=== PATIENT | male | born 1945 | race Caucasian/White ===

== ENCOUNTER → 2018-07-09 | Day surgery (SDC) | payer MEDICARE, OTHER ==
[~2018-07-09] MED LIST: Dextrose 5%-0.45% NaCl 1,000 ML IV SCH; Midazolam 1 MG/ML 2 ML SDV IV ONE; Midazolam 1 MG/ML 2 ML SDV ONE; Sodium Chloride 0.9% 10 ML Syringe FLUSH PRN; fentaNYL 100 MCG/2 ML SDV IV ONE; fentaNYL 100 MCG/2 ML SDV ONE
--- NOTE | 2018-07-09 13:43 | OR ---
DATE: 07/09/2018 PROCEDURE: Esophagogastroduodenoscopy, NBI, and multiple pinch biopsies. INSTRUMENT USED: [id number] Olympus video panendoscope. PREMEDICATIONS: No oral topical anesthesia used. Fentanyl 100 mcg intravenous, Versed 2 mg intravenous. The procedure was done under pulse oximetry, BP recording, and clinical research monitor. 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 The esophagogastroduodenoscopy is performed for surveillance, dysplasia, malignancy with reference to Jansen esophagus, erosive disease also under consideration. H. pylori status to be determined, biopsies to be obtained for Jansen dysplasia, endoscopic hemostasis therapy if needed. DESCRIPTION OF PROCEDURE: The scope was passed with ease. Adequate visualization of the esophagus was made from proximal to distal areas. No upper esophageal lesions identified. No distal esophageal stricture. No uphill or downhill esophageal varices. No Janice-Banks tear. No evidence of erosive esophagitis by [place] criteria. Proximally encroaching pink columnar epithelium was noted at around 37 cm distal to the oral verge. Sliding hiatal hernia was noted. No esophageal polyp or tumor mass identified. Four-quadrant biopsies were taken at 2 cm distance apart from the proximally encroaching pink columnar epithelium and sent for any evidence of dysplasia. No proximal gastric varices noted. Gastric fundus examination showed benign polyps. No gastric ulcer, malignant mass, or vascular ectasia identified. Duodenal bulb showed no ulcer. Visualized second part of the duodenum was unremarkable. Multiple pinch biopsies were taken from the gastric antrum and proximal body and sent for PyloriTek test for H. pylori and histopathology. No bleeding was noted from any of the visualized areas at the completion of the examination. Photographs were taken of the duodenal bulb, gastric antrum, fundus, and distal esophagus. IMPRESSION: 1. Jansen esophagus. 2. Sliding hiatal hernia. 3. Gastric fundus diminutive polyps. The patient tolerated the procedure well. [facility] /[id number]
== END | disposition home or self-care (01) ==
LOC: DL.ENDO 06:47
PROVIDERS: ATTEND Internal Medicine Gastroenterology
DX: K22.70 Barrett's esophagus without dysplasia (principal); K21.9 Gastro-esophageal reflux disease without esophagitis; K44.9 Diaphragmatic hernia without obstruction or gangrene; K31.7 Polyp of stomach and duodenum; I10 Essential (primary) hypertension; E78.5 Hyperlipidemia, unspecified; R73.9 Hyperglycemia, unspecified; Z88.0 Allergy status to penicillin; Z88.1 Allergy status to other antibiotic agents; Z88.8 Allergy status to other drugs, medicaments and biological substances
CPT/HCPCS: 87077; J2250; J3010; J7042

== ENCOUNTER 2020-05-25 23:25 | Emergency (ER) | payer MEDICARE, OTHER ==
--- NOTE | 2020-05-25 23:40 | EDM.PDOC ---
ED HPI GENERAL MEDICAL PROBLEM - General Stated Complaint: [facility] Time Seen by Provider: 05/25/20 23:28 Source of Information: Reports: Patient, EMS History Limitations: Reports: No Limitations - History of Present Illness INITIAL COMMENTS - FREE TEXT/NARRATIVE: HPI: This 74 yo male patient was brought to the ED by [facility] due to a fall down stairs. This patient reportedly fell down approximately 10 stairs hitting the back of his head. The patient reports he has had several drinks today and also admits to being intoxicated. The patient denies any loss of consciousness before, during or after the fall. Primary Survey Airway: open and patient Breathing: regular without additional effort Circulation: no major bleeding noted Deformity: no deformity noted Expose: as appropriate GCS: 15 Secondary Survey HEENT Head: laceration to the posterior scalp (bleeding controlled) Eyes: PERRLA Ears: no obvious trauma, canals open Nose: no deformity, no bleeding, mucosa moist Mouth: no noted trauma Throat: no abnormalities noted Neck: Subtle, normal range of motion no cervical tenderness Chest: lung sounds were clear and equal bilaterally, Heart was RRR, no murmurs, rubs or gallop Abdomen: normoactive bowel sounds, no organomegally, no tenderness on palpation Pelvis: stable Extremities: CMS intact Provider Trauma Notes Arrival Time: 2327 GCS on Arrival: 15 C-collar present on arrival: yes GCS at 1 hour: 15 Off spine board: 2330 Time primary survey: 2328 Time secondary survey:233 Time C-collar cleared: 0023 By: DS Time removed: 0024 GCS on discharge: 15 Onset: Today Duration: Minutes: Location: Reports: Head, Back Quality: Reports: Ache, Dull Severity: Moderate Improves with: Reports: None Worsens with: Reports: None Context: Reports: Trauma (fall down stairs) Associated Symptoms: Reports: No Other Symptoms - Related Data Allergies Allergy/AdvReac Type Severity Reaction Status Date / Time Aminoglycosides Allergy Cannot Verified 04/20/20 10:21 Remember clindamycin Allergy Hives Verified 04/20/20 10:21 Penicillins Allergy Hives Verified 04/20/20 10:21 vancomycin Allergy Hives Verified 04/20/20 10:21 Home Meds: Home Meds Amitriptyline [Elavil] 100 mg PO BEDTIME PRN 06/11/13 [History] Aspirin [Adult Low Dose Aspirin EC] 81 mg PO DAILY 06/11/13 [History] Multivitamin [Multi Vitamin Daily] 1 each PO DAILY 06/11/13 [History] Omeprazole 20 mg PO BID 06/11/13 [History] amLODIPine Besylate/Benazepril [Amlodipine-Benazepril 10-20 MG] 5 mg PO DAILY 06/11/13 [History] Finasteride 5 mg PO DAILY 04/05/15 [History] Acetaminophen [Tylenol Extra Strength] 500 mg PO Q6HR PRN 04/06/15 [History] Simvastatin [Zocor] 40 mg PO BEDTIME 04/06/15 [History] Acetaminophen/HYDROcodone [Ducor 325-5 MG] 1 tab PO BEDTIME PRN 07/08/18 [History] Benazepril [Lotensin] 20 mg PO DAILY 07/08/18 [History] Doxazosin [Cardura] 1 mg PO DAILY 07/08/18 [History] Fenofibrate Nanocrystallized [Tricor] 145 mg PO DAILY 07/08/18 [History] Metoprolol Succinate [Toprol Xl] 50 mg PO BID 07/08/18 [History] Nitroglycerin 0.4 mg PO ASDIRECTED PRN 07/08/18 [History] Leflunomide 20 mg PO DAILY 04/20/20 [History] Past Medical History HEENT History: Reports: None Cardiovascular History: Reports: High Cholesterol, Hypertension Gastrointestinal History: Reports: GERD Other Gastrointestinal History: Jansen's esophagus Genitourinary History: Reports: None Musculoskeletal History: Reports: Back Pain, Chronic Neurological History: Reports: None Psychiatric History: Reports: None Endocrine/Metabolic History: Reports: None Hematologic History: Reports: None Immunologic History: Reports: None Oncologic (Cancer) History: Reports: None Dermatologic History: Reports: None - Infectious Disease History Infectious Disease History: Reports: None, Novel Coronavirus - Past Surgical History HEENT Surgical History: Reports: None Cardiovascular Surgical History: Reports: Coronary Artery Bypass GI Surgical History: Reports: Appendectomy, Colonoscopy, EGD Male Surgical History: Reports: None Musculoskeletal Surgical History: Reports: Hip Replacement, Other (See Below) Other Musculoskeletal Surgeries/Procedures:: Lumbar Discectomy in 1970s Social & Family History - Family History Family Medical History: No Pertinent Family History - Caffeine Use Caffeine Use: Reports: Coffee Caffeine Use Comment: 2-3 cups daily Review of Systems - Review of Systems Review Of Systems: Comprehensive ROS is negative, except as noted in HPI. ED EXAM, GENERAL - Physical Exam Exam: See Below Exam Limited By: Intoxication General Appearance: Alert, WD/WN, Moderate Distress Eye Exam: Bilateral Eye: EOMI, Normal Inspection, PERRL Ears: Normal External Exam, Normal Canal, Hearing Grossly Normal, Normal TMs Nose: Normal Inspection, Normal Mucosa, No Blood Throat/Mouth: Normal Inspection, Normal Lips, Normal Teeth, Normal Gums, Normal Oropharynx, Normal Voice, No Airway Compromise Head: Other (laceration to posterior scalp) Respiratory/Chest: No Respiratory Distress, Lungs Clear, Normal Breath Sounds, No Accessory Muscle Use, Chest Non-Tender Cardiovascular: Normal Peripheral Pulses, Regular Rate, Rhythm, No Edema, No Gallop, No JVD, No Murmur, No Rub GI/Abdominal: Normal Bowel Sounds, Soft, Non-Tender, No Organomegaly, No Distention, No Abnormal Bruit, No Mass (Male) Exam: Deferred Rectal (Males) Exam: Deferred Back Exam: Normal Inspection, Full Range of Motion, NT Extremities: Normal Inspection, Normal Range of Motion, Non-Tender, Normal Capillary Refill, No Pedal Edema Neurological: Alert, Oriented, CN II-XII Intact, Normal Cognition, Normal Gait, Normal Reflexes, No Motor/Sensory Deficits Psychiatric: Normal Affect, Normal Mood Skin Exam: Warm, Dry, Normal Color, No Rash Lymphatic: No Adenopathy ED TRAUMA PROCEDURES - Laceration/Wound Repair Posterior Head Lac/Wound Length In cm: 3.5 Appearance: Subcutaneous Distal NVT: Neuro & Vascular Intact Skin Prep: Chlorhexidine (Hibiciens), Saline Exploration/Debridement/Repair: Wound Explored, In a Bloodless Field Closed With: Byron # of Sutures: 5 Drain Placement: No Sterile Dressing Applied: Nurse Tetanus Status Addressed: Yes Complications: No Course - Orders/Labs/Meds Orders: Active Orders 24 hr Category Date Time Status EKG Documentation Completion [RC] STAT Care 05/25/20 23:15 Active Vaccines to be Administered [RC] PER UNIT ROUTINE Care 05/25/20 23:51 Ordered CULTURE BLOOD [BC] Stat Lab 05/25/20 23:15 Ordered Labs: Laboratory Tests 05/25/20 05/25/20 05/25/20 Range/Units 23:32 23:32 23:33 WBC 7.2 (5.0-10.0) 10^3/uL RBC 4.61 (4.6-6.2) 10^6/uL Hgb 13.9 L D (14.0-18.0) g/dL Hct 40.3 (40.0-54.0) % MCV 87.4 (80-100) fL MCH 30.2 (27.0-34.0) pg MCHC 34.5 (33.0-35.0) g/dL Plt Count 233 (150-450) 10^3/uL Neut % (Auto) 56.3 (42.2-75.2) % Lymph % (Auto) 31.6 (20.5-50.1) % Preston % (Auto) 10.2 H (2-8) % Eos % (Auto) 1.5 (1.0-3.0) % Baso % (Auto) 0.4 (0.0-1.0) % Sodium 137 (136-145) mmol/L Potassium 3.4 L (3.5-5.1) mmol/L Chloride 98 (98-107) mmol/L Carbon Dioxide 26 (21-32) mmol/L Anion Gap 16.4 H (7-13) mEq/L BUN 14 (7-18) mg/dL Creatinine 1.28 (0.70-1.30) mg/dL Est Cr Clr Drug Dosing TNP Estimated GFR (MDRD) 55 BUN/Creatinine Ratio 10.9 (No establ ref range) Glucose 101 H (74-99) mg/dL Calcium 8.9 (8.5-10.1) mg/dL Total Bilirubin 0.4 (0.2-1.0) mg/dL AST 31 (15-37) U/L ALT 22 (16-63) U/L Alkaline Phosphatase 84 (46-116) U/L Troponin I < 0.017 (0.000-0.056) ng/mL Total Protein 6.7 (6.4-8.2) g/dL Albumin 3.3 L (3.4-5.0) g/dL Globulin 3.4 Albumin/Globulin Ratio 0.97 Urine Color Light yellow (YELLOW) Urine Appearance Clear (CLEAR) Urine pH 7.0 (5.0-9.0) Ur Specific [place] 1.010 (1.005-1.030) Urine Protein Negative (NEGATIVE) Urine Glucose (UA) 100 H (NEGATIVE) Urine Ketones Negative (NEGATIVE) Urine Occult Blood Trace-intact H (NEGATIVE) Urine Nitrite Negative (NEGATIVE) Urine Bilirubin Negative (NEGATIVE) Urine Urobilinogen 0.2 (0.2-1.0) mg/dL Ur Leukocyte Esterase Negative (NEGATIVE) Urine RBC 0-5 /HPF Urine WBC 0-5 (0-5/HPF) /HPF Ur Epithelial Cells Rare (NOT SEEN) /HPF Amorphous Sediment Rare (NOT SEEN) /HPF Urine Bacteria Few (0-FEW/HPF) /HPF Urine Mucus Rare (NOT SEEN) /LPF Urine Opiates Screen (NEGATIVE) Ur Oxycodone Screen (NEGATIVE) Urine Methadone Screen (NEGATIVE) Ur Barbiturates Screen (NEGATIVE) U Tricyclic Antidepress (NEGATIVE) Ur Phencyclidine Scrn (NEGATIVE) Ur Amphetamine Screen (NEGATIVE) U Methamphetamines Scrn (NEGATIVE) Urine MDMA Screen (NEGATIVE) U Benzodiazepines Scrn (NEGATIVE) Urine Cocaine Screen (NEGATIVE) U Marijuana (THC) Screen (NEGATIVE) Ethyl Alcohol 160 (0) mg/dL 05/25/20 Range/Units 23:33 WBC (5.0-10.0) 10^3/uL RBC (4.6-6.2) 10^6/uL Hgb (14.0-18.0) g/dL Hct (40.0-54.0) % MCV (80-100) fL MCH (27.0-34.0) pg MCHC (33.0-35.0) g/dL Plt Count (150-450) 10^3/uL Neut % (Auto) (42.2-75.2) % Lymph % (Auto) (20.5-50.1) % Preston % (Auto) (2-8) % Eos % (Auto) (1.0-3.0) % Baso % (Auto) (0.0-1.0) % Sodium (136-145) mmol/L Potassium (3.5-5.1) mmol/L Chloride (98-107) mmol/L Carbon Dioxide (21-32) mmol/L Anion Gap (7-13) mEq/L BUN (7-18) mg/dL Creatinine (0.70-1.30) mg/dL Est Cr Clr Drug Dosing Estimated GFR (MDRD) BUN/Creatinine Ratio (No establ ref range) Glucose (74-99) mg/dL Calcium (8.5-10.1) mg/dL Total Bilirubin (0.2-1.0) mg/dL AST (15-37) U/L ALT (16-63) U/L Alkaline Phosphatase (46-116) U/L Troponin I (0.000-0.056) ng/mL Total Protein (6.4-8.2) g/dL Albumin (3.4-5.0) g/dL Globulin Albumin/Globulin Ratio Urine Color (YELLOW) Urine Appearance (CLEAR) Urine pH (5.0-9.0) Ur Specific [place] (1.005-1.030) Urine Protein (NEGATIVE) Urine Glucose (UA) (NEGATIVE) Urine Ketones (NEGATIVE) Urine Occult Blood (NEGATIVE) Urine Nitrite (NEGATIVE) Urine Bilirubin (NEGATIVE) Urine Urobilinogen (0.2-1.0) mg/dL Ur Leukocyte Esterase (NEGATIVE) Urine RBC /HPF Urine WBC (0-5/HPF) /HPF Ur Epithelial Cells (NOT SEEN) /HPF Amorphous Sediment (NOT SEEN) /HPF Urine Bacteria (0-FEW/HPF) /HPF Urine Mucus (NOT SEEN) /LPF Urine Opiates Screen Negative (NEGATIVE) Ur Oxycodone Screen Negative (NEGATIVE) Urine Methadone Screen Negative (NEGATIVE) Ur Barbiturates Screen Negative (NEGATIVE) U Tricyclic Antidepress Positive H (NEGATIVE) Ur Phencyclidine Scrn Negative (NEGATIVE) Ur Amphetamine Screen Negative (NEGATIVE) U Methamphetamines Scrn Negative (NEGATIVE) Urine MDMA Screen Negative (NEGATIVE) U Benzodiazepines Scrn Negative (NEGATIVE) Urine Cocaine Screen Negative (NEGATIVE) U Marijuana (THC) Screen Negative (NEGATIVE) Ethyl Alcohol (0) mg/dL Meds: Medications Discontinued Medications Generic Name Dose Route Start Last Admin Trade Name Freq PRN Reason Stop Dose Admin Diphtheria/Tetanus/Acell Pertussis 0.5 ml 05/25/20 23:51 Boostrix IM 05/25/20 23:52 .ONCE ONE - Re-Assessments/Exams Free Text/Narrative Re-Assessment/Exam: 05/26/20 00:30 C-collar was removed after CT demonstrated no acute fracture/injury. The patient reports no additional pain with palpation or movement. Departure - Departure Time of Disposition: 00:32 Disposition: Home, Self-Care 01 Condition: Fair Clinical Impression: Fall down stairs Qualifiers: Encounter type: initial encounter Qualified Code(s): W10.8XXA - Fall (on) (from) other stairs and steps, initial encounter Laceration of scalp without complication Qualifiers: Encounter type: initial encounter Qualified Code(s): S01.01XA - Laceration without foreign body of scalp, initial encounter - Discharge Information *PRESCRIPTION DRUG MONITORING PROGRAM REVIEWED*: Not Applicable *COPY OF PRESCRIPTION DRUG MONITORING REPORT IN PATIENT PARISH: Not Applicable Instructions: Sutures, Byron, or Adhesive Wound Closure, [id number], Fall Prevention in the Home, Adult, [id number] Care Plan Goals: The patient was advised of the examination, lab and CT results (Head, Cervical Spine, Thoracic Spine and Lumbar Spine) during the visit. The patient's wound margins were well approximated during the visit. The patient should have the byron removed in 10-14 days. If the patient has any additional symptoms or concerns, the patient should either return to the emergency department or visit his primary care facility. - My Orders Last 24 Hours: My Active Orders 05/25/20 23:15 EKG Documentation Completion [RC] STAT CULTURE BLOOD [BC] Stat 05/25/20 23:51 Vaccines to be Administered [RC] PER UNIT ROUTINE - Assessment/Plan Last 24 Hours: My Active Orders 05/25/20 23:15 EKG Documentation Completion [RC] STAT CULTURE BLOOD [BC] Stat 05/25/20 23:51 Vaccines to be Administered [RC] PER UNIT ROUTINE
[2020-05-25] MEDS ORDERED: Diphtheria,Pertussis(Acell),Tetanus Vaccine 0.5 ML Syringe IM ONE (23:51)
[2020-05-26 00:02] LABS: ANION GAP 16.4 mEq/L (7-13); CHLORIDE,CL 98 mmol/L (98-107); SODIUM,NA 137 mmol/L (136-145)
--- NOTE | 2020-05-26 00:11 | CT ---
PROCEDURE INFORMATION: Exam: CT Lumbar Spine Without Contrast Exam date and time: 05/25/2020 11:40 PM Age: 74 years old Clinical indication: Other: Fell down stairs TECHNIQUE: Imaging protocol: Computed tomography images of the lumbar spine without contrast. Radiation optimization: All CT scans at this facility use at least one of these dose optimization techniques: automated exposure control; mA and/or kV adjustment per patient size (includes targeted exams where dose is matched to clinical indication); or iterative reconstruction. COMPARISON: No relevant prior studies available. FINDINGS: Vertebrae: Near anatomic alignment. The bodies of L4 and L 5 are fused. All visualized discs are moderate to severely narrowed.The facet joints are appropriately oriented. There is marked degenerative change of the facet joints. No posterior arch fracture seen. Status post right L5 laminectomy.There are moderate degenerative changes of the sacroiliac joints. There is no evidence of acute fracture. L1-L2: There is a mild broad-based diffuse disc bulge.There is mild facet ligamentum flavum hypertrophy at this level.There are no lateralizing abnormalities at this level.There is no significant spinal stenosis at this level. L2-L3: There is a mild broad-based diffuse disc bulge.There is severe facet and ligamentum flavum hypertrophy.There is no significant spinal stenosis at this level. L3-L4: There is a mild broad-based diffuse disc bulge.There is a moderate lateral left-sided focal abnormality compatible with lateral disc herniation/protrusion.There is severe facet and ligamentum flavum hypertrophy.There is moderate acquired spinal canal stenosis at this level.There is vacuum disc phenomenon at this level. L4-L5: The disc is fused , no bony stenosis. Intraspinal detail poor L5-S1: Postoperative level. There is no significant spinal stenosis at this level. Poor intraspinal detail. Vasculature: There is moderate diffuse calcific atherosclerotic plaque. Soft tissues: Urinary bladder appears moderately distended. Limited intraspinal detail. Other findings: Discs/Spinal canal/Neural foramina: IMPRESSION: 1. Postoperative exam, limited intraspinal detail. 2. There is no evidence of acute fracture. 3. Advanced degenerative changes as described. 4. Moderate acquired spinal canal stenosis at L3-L4. 5. Other findings as described. See discussion william. vidual levels above 6. Urinary bladder appears to be distended.
--- NOTE | 2020-05-26 00:17 | CT ---
PROCEDURE INFORMATION: Exam: CT Thoracic Spine Without Contrast Exam date and time: 05/25/2020 11:40 PM Age: 74 years old Clinical indication: Other: Fell down stairs TECHNIQUE: Imaging protocol: Computed tomography images of the thoracic spine without contrast. Radiation optimization: All CT scans at this facility use at least one of these dose optimization techniques: automated exposure control; mA and/or kV adjustment per patient size (includes targeted exams where dose is matched to clinical indication); or iterative reconstruction. COMPARISON: No relevant prior studies available. FINDINGS: Vertebrae: Near anatomic alignment. The facets are appropriately oriented. The facet joints demonstrate moderate degenerative hypertrophy and sclerosis. No posterior arch fracture seen. No compression fracture seen.There is no acute fracture otherwise. Discs/Spinal canal/Neural foramina: This technique is relatively insensitive for evaluating soft tissue compressive lesions in the thoracic segment. No gross soft tissue compressive lesion is seen. Other bones/joints: Advanced degenerative disc disease T9-T10. [id number] degenerative disc disease at other levels. Bridging anterior/right-sided osteophytes extend from T6 to T10 . Large anterior osteophytes are noted throughout the thoracolumbar segment otherwise. Soft tissues: No acute soft tissue abnormalities are identified. Lungs: There are minor subpleural atelectatic densities in the dependent portions of the lungs. The visualized lungs are otherwise clear. IMPRESSION: 1. There is no evidence of acute fracture. 2. Degenerative changes as described
--- NOTE | 2020-05-26 00:21 | CT ---
PROCEDURE INFORMATION: Exam: CT Head Without Contrast Exam date and time: 05/25/2020 11:40 PM Age: 74 years old Clinical indication: Other: Fell down stairs TECHNIQUE: Imaging protocol: Computed tomography of the head without contrast. Radiation optimization: All CT scans at this facility use at least one of these dose optimization techniques: automated exposure control; mA and/or kV adjustment per patient size (includes targeted exams where dose is matched to clinical indication); or iterative reconstruction. COMPARISON: No relevant prior studies available. FINDINGS: Brain: Age-appropriate atrophy. No hemorrhage. Unremarkable white matter. No mass effect. Cerebral ventricles: No ventriculomegaly. Bones/joints: Unremarkable. No acute fracture. Paranasal sinuses: Visualized sinuses are unremarkable. No fluid levels. Mastoid air cells: Visualized mastoid air cells are well aerated. Soft tissues: Posterior scalp hematoma and laceration on the left side. No foreign body. IMPRESSION: 1. No acute intracranial abnormality. 2. No intracranial hemorrhage. 3. No skull fracture. 4. Age-appropriate cerebral atrophy. 5. Posterior left scalp laceration and small hematoma. No foreign body.
--- NOTE | 2020-05-26 00:22 | CT ---
PROCEDURE INFORMATION: Exam: CT Cervical Spine Without Contrast Exam date and time: 05/25/2020 11:40 PM Age: 74 years old Clinical indication: Other: Fell down stairs TECHNIQUE: Imaging protocol: Computed tomography images of the cervical spine without contrast. Radiation optimization: All CT scans at this facility use at least one of these dose optimization techniques: automated exposure control; mA and/or kV adjustment per patient size (includes targeted exams where dose is matched to clinical indication); or iterative reconstruction. COMPARISON: No relevant prior studies available. FINDINGS: Bones/joints: Near anatomic alignment. The facet joints are appropriately oriented. There is marked degenerative change of the facet joints. No posterior arch fracture seen. There is no evidence of acute fracture otherwise. Discs/Spinal canal/Neural foramina: Moderate narrowing C5-C6 C6-C7 discs. Moderately large anterior osteophytes and small posterior osteophytes noted at these levels. Mild bilateral foraminal narrowing at C3-C4. Severe right-sided foraminal narrowing C4-C5. No compressive lesion otherwise. Lungs: There are scattered linear densities in both lungs which are likely fibrotic or atelectatic. Probable emphysematous change. Soft tissues: There is no soft tissue abnormality seen. IMPRESSION: There is no evidence of acute fracture.
== END 2020-05-26 01:00 | disposition home or self-care (01) ==
LOC: DL.ED 23:25
DX: S01.01XA Laceration without foreign body of scalp, initial encounter (principal); E78.00 Pure hypercholesterolemia, unspecified; I10 Essential (primary) hypertension; K21.9 Gastro-esophageal reflux disease without esophagitis; Z23 Encounter for immunization; Z86.16 Personal history of COVID-19; Z88.8 Allergy status to other drugs, medicaments and biological substances; Z88.1 Allergy status to other antibiotic agents; Z88.0 Allergy status to penicillin; Z79.899 Other long term (current) drug therapy; Z79.82 Long term (current) use of aspirin; W10.8XXA Fall (on) (from) other stairs and steps, initial encounter
CPT/HCPCS: 12002; 36415; 70450; 72125; 72128; 72131; 80053; 80305-QW; 80307; 81001; 84484; 85025; 87040; 90471; 99284; 99285-25

== ENCOUNTER 2021-04-15 14:34 | Emergency (ER) | payer MEDICARE, OTHER ==
--- NOTE | 2021-04-15 15:33 | EDM.PDOC ---
ED HPI GENERAL MEDICAL PROBLEM - General Chief Complaint: Lower Extremity Injury/Pain Stated Complaint: NUMBNESS IN LEG / CAN'T WALK ON IT Time Seen by Provider: 04/15/21 15:24 Source of Information: Reports: Patient History Limitations: Reports: No Limitations - History of Present Illness INITIAL COMMENTS - FREE TEXT/NARRATIVE: 75 y/o M c/o R leg numbness that he noticed when he woke up this morning around 730. He states he went to see is orthopedic doctor today at [facility] here in town for eval of a previous R knee pain. Pt reportedly had a knee injection a week ago for R knee pain but has had no improvement. He discussed his leg numbness with his DR. who told him to come to the ER. The R knee hurts but his R leg is numb from his buttocks to his toes and weaker than the L leg. He reports no radiculopathy, trauma, fever, chills, drugs, etoh, cp, db, abd pn, neck pain, vision problems, upper ext weakness. No CVA hx, no blood thinners. Onset: Unknown/Unsure Right Leg Pain Score (Numeric/FACES): 5 - Related Data Allergies Allergy/AdvReac Type Severity Reaction Status Date / Time Aminoglycosides Allergy Cannot Verified 04/15/21 14:53 Remember clindamycin Allergy Hives Verified 04/15/21 14:53 Penicillins Allergy Hives Verified 04/15/21 14:53 vancomycin Allergy Hives Verified 04/15/21 14:53 Home Meds: Home Meds Amitriptyline [Elavil] 100 mg PO BEDTIME PRN 06/11/13 [History] Aspirin [Adult Low Dose Aspirin EC] 81 mg PO DAILY 06/11/13 [History] Multivitamin [Multi Vitamin Daily] 1 each PO DAILY 06/11/13 [History] Omeprazole 20 mg PO BID 06/11/13 [History] amLODIPine Besylate/Benazepril [Amlodipine-Benazepril 10-20 MG] 5 mg PO DAILY 06/11/13 [History] Finasteride 5 mg PO DAILY 04/05/15 [History] Acetaminophen [Tylenol Extra Strength] 500 mg PO Q6HR PRN 04/06/15 [History] Simvastatin [Zocor] 40 mg PO BEDTIME 04/06/15 [History] Acetaminophen/HYDROcodone [[place] 325-5 MG] 1 tab PO BEDTIME PRN 07/08/18 [History] Benazepril [Lotensin] 20 mg PO DAILY 07/08/18 [History] Doxazosin [Cardura] 1 mg PO DAILY 07/08/18 [History] Fenofibrate Nanocrystallized [Tricor] 145 mg PO DAILY 07/08/18 [History] Metoprolol Succinate [Toprol Xl] 50 mg PO BID 07/08/18 [History] Nitroglycerin 0.4 mg PO ASDIRECTED PRN 07/08/18 [History] Leflunomide 20 mg PO DAILY 04/20/20 [History] Past Medical History HEENT History: Reports: Hard of Hearing Cardiovascular History: Reports: High Cholesterol, Hypertension Respiratory History: Reports: None Gastrointestinal History: Reports: GERD Other Gastrointestinal History: Jansen's esophagus Genitourinary History: Reports: None Musculoskeletal History: Reports: Back Pain, Chronic Neurological History: Reports: None Psychiatric History: Reports: None Endocrine/Metabolic History: Reports: None Hematologic History: Reports: None Immunologic History: Reports: None Oncologic (Cancer) History: Reports: None Dermatologic History: Reports: None - Infectious Disease History Infectious Disease History: Reports: Novel Coronavirus - Past Surgical History HEENT Surgical History: Reports: None Cardiovascular Surgical History: Reports: Coronary Artery Bypass GI Surgical History: Reports: Appendectomy, Colonoscopy, EGD Male Surgical History: Reports: None Musculoskeletal Surgical History: Reports: Hip Replacement, Other (See Below) Other Musculoskeletal Surgeries/Procedures:: Lumbar Discectomy in 1970s Social & Family History - Family History Family Medical History: No Pertinent Family History - Tobacco Use Tobacco Use Status *Q: Never Tobacco User - Caffeine Use Caffeine Use: Reports: Coffee Caffeine Use Comment: 2-3 cups daily - Alcohol Use Days Per Week of Alcohol Use: 7 Number of Drinks Per Day: 5 Total Drinks Per Week: 35 - Recreational Drug Use Recreational Drug Use: No Review of Systems - Review of Systems Review Of Systems: Comprehensive ROS is negative, except as noted in HPI. ED EXAM, GENERAL - Physical Exam Exam: See Below Exam Limited By: No Limitations General Appearance: Alert, No Apparent Distress Eye Exam: Bilateral Eye: PERRL Ears: Normal External Exam, Normal Canal, Hearing Grossly Normal, Normal TMs Ear Exam: Bilateral Ear: Auricle Normal, Canal Normal, TM normal Nose: Normal Inspection, Normal Mucosa, No Blood Throat/Mouth: Normal Inspection, Normal Lips, Normal Gums, Normal Oropharynx, Normal Voice, No Airway Compromise Head: Atraumatic, Normocephalic Neck: Normal Inspection, Supple, Non-Tender, Full Range of Motion Respiratory/Chest: No Respiratory Distress, Lungs Clear, Normal Breath Sounds, No Accessory Muscle Use, Chest Non-Tender Cardiovascular: Normal Peripheral Pulses, Regular Rate, Rhythm Peripheral Pulses: 2+: Radial (L), Radial (R), Posterior Tibial (L), Posterior Tibial (R), Dorsalis Pedis (L), Dorsalis Pedis (R) GI/Abdominal: Soft, Non-Tender (Male) Exam: Deferred Rectal (Males) Exam: Deferred Back Exam: Other (tenderness upon palpation of cervical,thoracic and lumbar spine. Tenderness over L sacral iliac joint, numbness over R SIJ) Extremities: Other (L leg normal exam, R leg weak hip flexion, ext, knee flex, ext, plantar flexion and ext. Distal ulses intact. ) Psychiatric: Normal Affect, Normal Mood Skin Exam: Warm, Dry, Intact Course - Vital Signs Last Recorded V/S: Last Vital Signs Temp 97.7 F 04/15/21 14:53 Pulse 108 H 04/15/21 14:53 Resp 18 04/15/21 14:53 BP 179/108 H 04/15/21 14:53 Pulse Ox 97 04/15/21 14:53 - Orders/Labs/Meds Orders: Active Orders 24 hr Category Date Time Status DRUG SCREEN URINE BIORAD [URCHEM] Stat Lab 04/15/21 15:10 Ordered UA RFX ROHIT AND CULT IF INDIC [URIN] Stat Lab 04/15/21 15:10 Ordered Labs: Laboratory Tests 04/15/21 04/15/21 04/15/21 Range/Units 15:22 15:22 15:22 WBC 12.2 H (5.0-10.0) 10^3/uL RBC 4.54 L (4.6-6.2) 10^6/uL Hgb 13.3 L (14.0-18.0) g/dL Hct 39.9 L (40.0-54.0) % MCV 87.9 (80-100) fL MCH 29.3 (27.0-34.0) pg MCHC 33.3 (33.0-35.0) g/dL Plt Count 241 (150-450) 10^3/uL Neut % (Auto) 87.7 H (42.2-75.2) % Lymph % (Auto) 6.7 L (20.5-50.1) % [place] % (Auto) 5.2 (2-8) % Eos % (Auto) 0.2 L (1.0-3.0) % Baso % (Auto) 0.2 (0.0-1.0) % ESR (0-15) mm/hr Sodium 137 (136-145) mmol/L Potassium 3.9 (3.5-5.1) mmol/L Chloride 100 (98-107) mmol/L Carbon Dioxide 25 (21-32) mmol/L Anion Gap 15.9 H (7-13) mEq/L BUN 17 (7-18) mg/dL Creatinine 1.30 (0.70-1.30) mg/dL Est Cr Clr Drug Dosing 48.96 mL/min Estimated GFR (MDRD) 54 BUN/Creatinine Ratio 13.1 (No establ ref range) Glucose 96 (70-99) mg/dL Lactic Acid 1.0 (0.4-2.0) mmol/L Calcium 9.4 (8.5-10.1) mg/dL Phosphorus 2.8 (2.6-4.7) mg/dL Magnesium 1.4 L (1.8-2.4) mg/dL Total Bilirubin 0.8 (0.2-1.0) mg/dL AST 29 (15-37) U/L ALT 20 (16-63) U/L Alkaline Phosphatase 64 (46-116) U/L Lactate Dehydrogenase 180 (85-227) U/L C-Reactive Protein < 0.2 (0.0-0.9) mg/dL Total Protein 7.1 (6.4-8.2) g/dL Albumin 3.5 (3.4-5.0) g/dL Globulin 3.6 Albumin/Globulin Ratio 1.0 TSH, Ultra Sensitive 1.45 (0.36-3.74) uIU/mL Ethyl Alcohol < 3 (0) mg/dL 04/15/21 Range/Units 15:22 WBC (5.0-10.0) 10^3/uL RBC (4.6-6.2) 10^6/uL Hgb (14.0-18.0) g/dL Hct (40.0-54.0) % MCV (80-100) fL MCH (27.0-34.0) pg MCHC (33.0-35.0) g/dL Plt Count (150-450) 10^3/uL Neut % (Auto) (42.2-75.2) % Lymph % (Auto) (20.5-50.1) % [place]ole % (Auto) (2-8) % Eos % (Auto) (1.0-3.0) % Baso % (Auto) (0.0-1.0) % ESR 8 (0-15) mm/hr Sodium (136-145) mmol/L Potassium (3.5-5.1) mmol/L Chloride (98-107) mmol/L Carbon Dioxide (21-32) mmol/L Anion Gap (7-13) mEq/L BUN (7-18) mg/dL Creatinine (0.70-1.30) mg/dL Est Cr Clr Drug Dosing mL/min Estimated GFR (MDRD) BUN/Creatinine Ratio (No establ ref range) Glucose (70-99) mg/dL Lactic Acid (0.4-2.0) mmol/L Calcium (8.5-10.1) mg/dL Phosphorus (2.6-4.7) mg/dL Magnesium (1.8-2.4) mg/dL Total Bilirubin (0.2-1.0) mg/dL AST (15-37) U/L ALT (16-63) U/L Alkaline Phosphatase (46-116) U/L Lactate Dehydrogenase (85-227) U/L C-Reactive Protein (0.0-0.9) mg/dL Total Protein (6.4-8.2) g/dL Albumin (3.4-5.0) g/dL Globulin Albumin/Globulin Ratio TSH, Ultra Sensitive (0.36-3.74) uIU/mL Ethyl Alcohol (0) mg/dL - Re-Assessments/Exams Free Text/Narrative Re-Assessment/Exam: 04/15/21 16:45 I discussed the pts labs, exam and imaging with him and explained te results. There were no acute findings in the pts workup but significant degenerative changes. At the present his symptoms have resolved on their own without intervention. I will have him follow up with his PCP earlier next week about his visit today. Departure - Departure Time of Disposition: 16:51 Disposition: Home, Self-Care 01 Condition: Good Clinical Impression: Leg numbness - Discharge Information *PRESCRIPTION DRUG MONITORING PROGRAM REVIEWED*: Not Applicable *COPY OF PRESCRIPTION DRUG MONITORING REPORT IN PATIENT PARISH: Not Applicable Forms: ED Department Discharge Additional Instructions: Follow up with your primary care facility about your episode of numbness today. If any new symptoms or cocnerns develop contact your [facility] facility or return to the ER. Sepsis Event Note (ED) - Evaluation Sepsis Screening Result: No Definite Risk - Focused Exam Vital Signs: Vital Signs Temp Pulse Resp BP Pulse Ox 04/15/21 14:53 97.7 F 108 H 18 179/108 H 97 - My Orders Last 24 Hours: My Active Orders 04/15/21 15:10 DRUG SCREEN URINE BIORAD [URCHEM] Stat UA RFX ROHIT AND CULT IF INDIC [URIN] Stat - Assessment/Plan Last 24 Hours: My Active Orders 04/15/21 15:10 DRUG SCREEN URINE BIORAD [URCHEM] Stat UA RFX ROHIT AND CULT IF INDIC [URIN] Stat
[2021-04-15 15:56] LABS: ANION GAP 15.9 mEq/L (7-13); CHLORIDE,CL 100 mmol/L (98-107); SODIUM,NA 137 mmol/L (136-145)
--- NOTE | 2021-04-15 16:10 | CT ---
PROCEDURE INFORMATION: Exam: CT Head Without Contrast Exam date and time: 04/15/2021 3:34 PM Age: 75 years old Clinical indication: Other: R leg numbness TECHNIQUE: Imaging protocol: Computed tomography of the head without contrast. Radiation optimization: All CT scans at this facility use at least one of these dose optimization techniques: automated exposure control; mA and/or kV adjustment per patient size (includes targeted exams where dose is matched to clinical indication); or iterative reconstruction. COMPARISON: CT Head wo Cont 05/25/2020 11:40 PM FINDINGS: Brain: Prominent sulci. Patchy hypodensity of the cerebral white matter which are nonspecific but likely secondary to microangiopathic changes. Cerebral ventricles: The ventricles are prominent secondary to diffuse volume loss/atrophy. Paranasal sinuses: Visualized sinuses are unremarkable. No fluid levels. Mastoid air cells: Visualized mastoid air cells are well aerated. Bones/joints: Unremarkable. No acute fracture. Soft tissues: Unremarkable. IMPRESSION: Chronic age related changes but no evidence of acute intracranial pathology.
--- NOTE | 2021-04-15 16:18 | CT ---
PROCEDURE INFORMATION: Exam: CT Lumbar Spine Without Contrast Exam date and time: 04/15/2021 3:34 PM Age: 75 years old Clinical indication: Other: R leg numbness TECHNIQUE: Imaging protocol: Computed tomography images of the lumbar spine without contrast. Radiation optimization: All CT scans at this facility use at least one of these dose optimization techniques: automated exposure control; mA and/or kV adjustment per patient size (includes targeted exams where dose is matched to clinical indication); or iterative reconstruction. COMPARISON: CT Lumbar Spine wo Cont 05/25/2020 11:40 PM FINDINGS: Vertebrae: Multilevel spondylitic change with bridging osteophytes observed at L1-L2, L2-L3 and L3-L4. Interbody fusion of L4 and 5. Severe disc space narrowing at L2-L3 and L4-L5. Multilevel degenerative facet arthrosis. No fracture. Discs/Spinal canal/Neural foramina: Severe canal stenosis at L3-L4. Mild canal stenosis at L4-L5. Bilateral neural foraminal stenosis at L2-L3, L3-L4 and L5-S1. Soft tissues: Unremarkable. IMPRESSION: 1. Multilevel degenerative disc disease and facet arthrosis. 2. Severe canal stenosis, L3-L4. 3. Mild canal stenosis, L3-L4. 4. Multilevel neural foraminal stenosis, as above. 5. No acute findings identified.
--- NOTE | 2021-04-15 16:20 | CT ---
PROCEDURE INFORMATION: Exam: CT Thoracic Spine Without Contrast Exam date and time: 04/15/2021 3:34 PM Age: 75 years old Clinical indication: Other: R leg numbness TECHNIQUE: Imaging protocol: Computed tomography images of the thoracic spine without contrast. Radiation optimization: All CT scans at this facility use at least one of these dose optimization techniques: automated exposure control; mA and/or kV adjustment per patient size (includes targeted exams where dose is matched to clinical indication); or iterative reconstruction. COMPARISON: CT Thoracic Spine wo Cont 05/25/2020 11:40 PM FINDINGS: Vertebrae: No acute fracture. Normal alignment. Multilevel spondylitic change likely due to DISH. Discs/Spinal canal/Neural foramina: No significant disc protrusion. No severe spinal canal stenosis. No significant neural foraminal narrowing. Soft tissues: Unremarkable. 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 No acute findings.
--- NOTE | 2021-04-15 16:31 | CT ---
PROCEDURE INFORMATION: Exam: CT Cervical Spine Without Contrast Exam date and time: 04/15/2021 3:34 PM Age: 75 years old Clinical indication: Other: R leg numbness TECHNIQUE: Imaging protocol: Computed tomography images of the cervical spine without contrast. Radiation optimization: All CT scans at this facility use at least one of these dose optimization techniques: automated exposure control; mA and/or kV adjustment per patient size (includes targeted exams where dose is matched to clinical indication); or iterative reconstruction. COMPARISON: CT Cervical Spine wo Cont 05/25/2020 11:40 PM FINDINGS: Bones/joints: No acute fracture. Normal alignment. Discs/Spinal canal/Neural foramina: No significant spinal stenosis. Lungs: Lung apices are normal. Soft tissues: Unremarkable. IMPRESSION: No acute fracture or dislocation.
== END 2021-04-15 17:05 | disposition home or self-care (01) ==
LOC: DL.ED 14:34
DX: R20.0 Anesthesia of skin (principal); E78.00 Pure hypercholesterolemia, unspecified; I10 Essential (primary) hypertension; K21.9 Gastro-esophageal reflux disease without esophagitis; Z88.1 Allergy status to other antibiotic agents; Z88.0 Allergy status to penicillin; Z88.8 Allergy status to other drugs, medicaments and biological substances; Z79.899 Other long term (current) drug therapy; Z79.82 Long term (current) use of aspirin
CPT/HCPCS: 36415; 70450; 72125; 72128; 72131; 80053; 80307; 83605; 83615; 83735; 84100; 84443; 85025; 85651; 86140; 99284-25

== ENCOUNTER 2022-12-26 08:32 | Emergency (ER) | payer MEDICARE, OTHER ==
[2022-12-26] MEDS: Lidocaine 2% with EPINEPHrine 1:200,000 20 ML SDV INJECT ONE (09:23)
== END 2022-12-26 10:10 | disposition home or self-care (01) ==
LOC: DL.ED 08:32
DX: L03.317 Cellulitis of buttock (principal); L02.31 Cutaneous abscess of buttock; E78.00 Pure hypercholesterolemia, unspecified; I10 Essential (primary) hypertension; K21.9 Gastro-esophageal reflux disease without esophagitis; Z88.0 Allergy status to penicillin; Z86.16 Personal history of COVID-19; Z88.1 Allergy status to other antibiotic agents; Z79.82 Long term (current) use of aspirin; Z79.899 Other long term (current) drug therapy
CPT/HCPCS: 10060; 99282; 99283; J3490